=== PATIENT | male | born 1945 | race Caucasian/White ===

== ENCOUNTER → 2017-07-16 | Outpatient (CLI) | payer OTHER | LOC: BHFA 12:45 | PROVIDERS: ATTEND Physician Assistant Medical | DX: I50.9 Heart failure, unspecified (principal) ==

== ENCOUNTER → 2017-07-21 | Outpatient (CLI) | payer OTHER | LOC: FIMAGING 14:10 | PROVIDERS: ATTEND Physician Assistant Medical | DX: R06.00 Dyspnea, unspecified (principal); R53.83 Other fatigue ==

== ENCOUNTER → 2017-07-21 | Outpatient (CLI) | payer OTHER ==
--- NOTE | 2017-07-21 16:24 | ECHO ---
[email or web address] [address] [address] Main: [phone] Fax: Transthoracic Echocardiogram Name: JERRI DAWKINS MR#: [id number] Study Date: 07/21/2017 Study Time: 01:27 PM Date of : 1945 Age: 72 year(s) Height: 172.7 cm (68 in.) Weight: 70.31 kg (155 lb.) BSA: 1.83 m2 Gender: Male Examination: Echo Indication: CHF, Hypertension Image Quality: Adequate Contrast: Requested by: Daisy Bullock BP: 120 mmHg/85 mmHg Heart Rate: Rhythm: Indication: CHF, Hypertension Procedure Staff Rubbish Collector: Imani De Leon RDCS Reading Physician: Gabriel Gupta MD Requesting Provider: Measurements: Chambers Valvular Assessment AV/MV Valvular Assessment TV/PV Normal Normal Normal Name Value Range Name Value Range Name Value Range Ao Dianna (2D): 2.8 cm (1.4 cm-2.6 AV Vmax: 1.20 m/s (1 m/s-1.7 TR Vmax: 2.59 mm/s ( - ) cm) m/s) TR PGmax: 27 mmHg ( - ) IVSd (2D): 1.1 cm (0.6 cm-1.1 AV maxP mmHg ( - ) syst. PAP: 32 mmHg ( - ) cm) AV meanP mmHg ( - ) PV Vmax: 0.79 m/s (0.6 m/s-0.9 LVDd (2D): 4.1 cm (4.2 cm-5.9 EMMANUEL (VTI): 2.1 cm ( - ) m/s) cm) MV E Vmax: 0.66 m/s ( - ) PV PGmax: 2 mmHg ( - ) LVDs (2D): 3.4 cm (2.1 cm-4 MV meanP mmHg ( - ) cm) MV PHT: 0.047 s ( - ) LVPWd (2D): 1.1 cm (0.6 cm-1 cm) MVA (Vmax): 4.0 m/s ( - ) LVOTd 2.1 cm 2.1 cm mm MVA (PHT): 4.7 s ( - ) LVEF (BP): 55 % (>=55 %) RVDd(2D): 3.3 cm (1.9 cm-3.8 cmmm) Continued Measurements: Chambers Valvular Assessment AV/MV Valvular Assessment TV/PV Name Value Name Value Name Value LADs: 4.4 cm MV Annulus: 3.2 cm CVP (est.): 5 mmHg LADs Lon.5 cm MV DecTime: 151 m/s LA Area: 28.3 cm2 MV E' Septal: 0.09 m/s LA Volume: 136 ml MV E/E' Septal: 7.00 LA Volume Index: 74.3 ml/m2 MV E/E' Lateral: 5.40 RA Area: 23.1 cm2 MV VTI: 12.00 cm MR ERO: 0.250 cm2 Patient: JERRI DAWKINS Study Date: 07/21/2017 Page 1 of 2 01:27 PM MR PISA radius: 7 mm MR Reg. Volume: 47 ml MR Reg. Fraction: 49 % Additional Vessels Name Value Ao Ascendin.2 cm Inferior Vena Cava: 1.5 cm Findings: Left Ventricle: Normal size left ventricle. No LV hypertrophy. Normal global systolic LV function. EF is 55 %. No regional wall motion abnormality. Unable to assess diastolic dysfunction. Right Ventricle: Normal size right ventricle. Normal RV function. Left Atrium: The left atrium is severely dilated. Right Atrium: Right atrial enlargement. Mitral Valve: The mitral valve is normal in appearance and function. Mild to moderate mitral regurgitation. No mitral stenosis is present. Aortic Valve: The aortic valve is tri-leaflet. Aortic sclerosis is present. Moderate aortic valve regurgitation is present. No aortic valve stenosis is present. Tricuspid Valve: The tricuspid valve is normal in appearance and function. Moderate tricuspid regurgitation is present. The pulmonary artery pressure is normal. Right ventricular systolic pressure measures 32mmHg. Pulmonic Valve: The pulmonic valve is normal in appearance and function. There is no pulmonic regurgitation seen. Aorta: The aorta is normal. Normal size aortic root measuring 2.8 cm. Normal size ascending aorta measuring 3.2 cm. IVC: The IVC is normal sized. Pericardium: No pericardial effusion. There is a pleural effusion present. Exam Comments: Appears to be in a fib. (No Signature Object) Patient: JERRI DAWKINS Study Date: 07/21/2017 Page 2 of 2 01:27 PM [id number]
== END ==
LOC: FCP 13:13
PROVIDERS: ATTEND Physician Assistant Medical
DX: I50.9 Heart failure, unspecified (principal); I08.3 Combined rheumatic disorders of mitral, aortic and tricuspid valves; J90 Pleural effusion, not elsewhere classified